=== PATIENT | male | born 1935 | race Caucasian/White ===

== ENCOUNTER 2022-02-18 07:00 | Day surgery (SDC) | payer MEDICARE, BC ==
[2022-02-18] VITALS (11 sets, daily range): BP systolic 120–136; BP diastolic 69–83; PULSE 57–66; TEMP 97.5–98.2
[~2022-02-18] VITALS: Wt 77.2 kg
[~2022-02-18 07:00] MED LIST: ALEVE220 MG PO; CELEBREX 200MG200 MG PO; COLACE 100100 MG/CAP PO; FOLIC ACID 40400 MCG PO; HYZAAR 50-12.1 UDTAB PO; IRON FERROUS S325 MG PO; LOVENOX40 MG/0.4 SC; NEXIUM 40MG40 MG PO; NORCO 325 MG-7.1 TAB PO; PRESERVISION1 SGL PO; TOPROL XL 25MG25 MG PO; VITAMIN C500 MG PO
[2022-02-18 07:55] LABS: BASO % 0.5 % (0.0-2.0); EOS # 0.1 K/mm3 (0.0-0.7); EOS % 1.2 % (0.0-4.0); GRAN # 3.7 K/mm3 (1.4-6.5); GRAN % 65.7 % (42.2-75.2); HEMATOCRIT 40.3 % (42.0-52.0); LYMPH # 1.2 K/mm3 (1.2-3.4); LYMPH % 21.5 % (20.0-51.0); MEAN CELL VOLUME 93 fl (80.0-100.0); MEAN CORPUSCULAR HEMOGLOBIN 32 pg (27-31); MEAN CORPUSCULAR HGB CONC 35 g/dl (33.0-37.0); MEAN PLATELET VOLUME 9.4 fl (7.4-10.4); MONO # 0.6 K/mm3 (0.1-0.6); MONO % 10.7 % (1.7-9.3); PLATELET COUNT 195 K/mm3 (130-400); RED BLOOD COUNT 4.32 M/mm3 (4.20-5.60); REDCELL DISTRIBUTION WIDTH-CV 13.2 % (11.5-14.5)
[2022-02-18 08:09] LABS: INR 1.2 (0.8-3.0); PROTHROMBIN TIME 13.1 SECONDS (9.7-12.8)
[2022-02-18 08:11] LABS: CALCIUM 8.7 mg/dL (8.4-10.2); CREATININE, serum 1.12 mg/dL (0.72-1.25); POTASSIUM 3.9 mmol/L (3.5-4.5)
--- NOTE | 2022-02-18 09:00 | NUR ---
Moderate sedation assessment completed in express unit. See merge for all vital signs, interventions, assessment, and medication times.
[2022-02-18] MEDS ORDERED: UROXATRAL10 M1 PO (09:05)
[2022-02-18] MEDS ORDERED: NORVASC 5MG5 MG/TAB PO (09:05)
[2022-02-18] MEDS ORDERED: ATROVENT NASAL15 ML NS (09:06)
[2022-02-18] MEDS ORDERED: ALLEGRA-D 24HR1 T24 PO (09:06)
[2022-02-18] MEDS ORDERED: INDERAL 20MG20 MG PO (09:08)
[2022-02-18] MEDS ORDERED: FLOMAX 0.40.4 MG/CAP PO (09:10)
--- NOTE | 2022-02-18 15:32 | NUR ---
Patient arrived from record label internship @ approx. 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 Small amount of blood noted in center of dressing. Patient denies pain. Ice pack placed. Patient on post-op VS.
--- NOTE | 2022-02-18 17:26 | NUR ---
Patient has done well, VSS. Denies any pain. Ice pack replaced. Assisted with repositioning, sling adjusted. Patient instructed not to move left arm much, as this could cause the pacemaker leads to displace.
--- NOTE | 2022-02-18 20:15 | NUR ---
Initial shift assessment done- denies pain tonight-- Tele on paced 60/min, pacemaker site with gauze-dry and intact-has just a shadow of old drainage on dressing- no new bleeding. Ice to pacemaker site. Left arm sling on.
[2022-02-19 03:18] VITALS: BP 140/81; PULSE 59; TEMP 97.4
--- NOTE | 2022-02-19 05:21 | NUR ---
Quiet night- denies any pain/SOB, pacemaker site remains clean/dry-VSS, pt has been resting well. Voiding per urinal .
[2022-02-19 07:33] VITALS: BP 148/82; PULSE 64; TEMP 97.8
--- NOTE | 2022-02-19 10:15 | NUR ---
Patient denies any concerns this morning. Asked about when he would discharge; This RN informed the patient that it would be whenever the test administrator arrives to do so. Patient assisted to the bathroom for BM. Patient is steady, but moves slowly. Pacemaker site is CDI. Sling removed and patient instructed to refrain from lifting arm, and pulling arm back.
[2022-02-19] MEDS ORDERED: CEPHALEXIN500 M1 PO (11:14)
[2022-02-19] MEDS ORDERED: INDERAL 20MG20 MG PO (11:16)
--- NOTE | 2022-02-19 11:35 | NUR ---
First visit from the greenskeeper head. No needs right now.
--- NOTE | 2022-02-19 12:14 | NUR ---
Patient discharged home w/ . IV removed by this RN. Telemetry removed by PCT. PCT also assisted patient with getting dressed and wheeled the patient out. Discharge education discussed w/ patient and . Patient and both verbalized understanding.
--- NOTE | 2022-02-19 13:42 | NUR ---
sheet metal layout worker met with patient to discuss discharge plan. Patient lives at home with his Bárbara ([phone]) who is at bedside. They reside in [place]. He is independent with his ADL's and does not utilize any DME or home oxygen. PCP is Dr. Pennington and they use [facility] for medications. 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 Patient is scheduled to dc home later today. D/C plan: Home
== END 2022-02-19 12:00 | disposition home or self-care (01) ==
LOC: COL.CAR 07:00 → MEDICAL 11:43 → COL.CAR 02-19 12:00
PROVIDERS: Internal Medicine Cardiovascular Disease
DX: I49.5 Sick sinus syndrome (principal); R42 Dizziness and giddiness; I51.7 Cardiomegaly; I34.0 Nonrheumatic mitral (valve) insufficiency; I77.819 Aortic ectasia, unspecified site
CPT/HCPCS: OP; C1785; C1894; C1898; J0690; J2250; J3010; J7030; Q9967